=== PATIENT | male | born 1985 | race Caucasian/White ===

== ENCOUNTER → 2016-08-05 | Outpatient (CLI) | payer OTHER ==
--- NOTE | 2016-08-06 08:28 | RAD ---
Cervical spine, 3 views, 08/05/2016: History: Neck pain and right arm tingling No fracture or dislocation is identified. There are only minimal spurs in the mid cervical spine. The disc spaces are fairly well preserved. The prevertebral soft tissues are unremarkable. IMPRESSION: 1. Minimal marginal spurring. 2. No acute abnormality is detected. 3. MR scanning of the cervical spine may be useful for further evaluation, if clinically indicated. Right shoulder, 3 views, 08/05/2016: No fracture or dislocation is identified. The periarticular soft tissues are unremarkable. IMPRESSION: No significant right shoulder abnormality is detected. Right elbow, 3 views, 08/05/2016: The exam is suboptimal due to patient rotation. No fracture or dislocation is identified. No joint effusion is evident. IMPRESSION: No acute right elbow abnormality is detected.
== END | disposition home or self-care (01) ==
LOC: RAD 18:11
PROVIDERS: ATTEND Specialist
DX: M25.521 Pain in right elbow (principal); M25.511 Pain in right shoulder
CPT/HCPCS: 72040; 73030; 73080

== ENCOUNTER → 2019-08-06 | Outpatient (CLI) | payer OTHER ==
--- NOTE | 2019-08-06 14:12 | RAD ---
INDICATION: Knee pain COMPARISON: None. IMPRESSION: Right knee: 4 views obtained. No acute fracture or dislocation. There may be some very mild degenerative changes. Electronically signed by: Cash Wright MD (08/06/2019 2:09 PM) [id number]
== END | disposition home or self-care (01) ==
LOC: RAD 12:59
PROVIDERS: ATTEND Family Medicine
DX: M25.561 Pain in right knee (principal)
CPT/HCPCS: 73564

== ENCOUNTER 2020-06-24 02:02 | Emergency (ER) | payer OTHER ==
[~2020-06-24] VITALS: Ht 182.9 cm; Wt 88.6 kg
[2020-06-24 02:06] VITALS: BP 121/54
--- NOTE | 2020-06-24 03:04 | PHYS DOC ---
Past Medical History Past Medical History: No Pertinent History Past Surgical History: No Surgical History Smoking Status: Current Every Day Smoker Alcohol Use: Rarely General Adult EDM: Chief Complaint: FACE PAIN HPI: HPI: 35-year-old male past medical history of tobacco dependence, presents the ED with complaints of left sided upper jaw pain x 3 wks, no relief with Tylenol or ibuprofen. Patient states he has been seen at his dentist and had cleaning over his wisdom tooth that was extracted a year and half ago. Dentist did x-rays at the time and did not feel as if the tooth was infected or the cause of his pain. Patient seen in urgent care clinic 10 days ago and was given steroids and antibiotics, treated for sinus infection-no change with sxs. Patient denies any blunt injury. No associated fever, headache, neck stiffness or nuchal rigidity, nausea or vomiting, hearing loss, dizziness or blurred vision. Review of Systems: Review of Systems: Constitutional: Denies fever or chills. [] Eyes: Denies change in visual acuity or eye discharge or red eye HENT: Denies nasal congestion or sore throat or earache or ear drainage or hearing loss or tinnitus Respiratory: Denies cough or shortness of breath. [] Cardiovascular: Denies chest pain or edema. [] GI: Denies abdominal pain, nausea, vomiting, bloody stools or diarrhea. [] : Denies dysuria or hematuria Musculoskeletal: Denies back pain or joint pain. [] Integument: Denies rash. [] Neurologic: Denies headache, focal weakness or sensory changes. [] Endocrine: Denies polyuria or polydipsia. [] Lymphatic: Denies swollen glands. [] Psychiatric: Denies depression or anxiety. [] Heart Score: C/O Chest Pain: No Risk Factors: Risk Factors: DM, Current or recent (<one month) smoker, HTN, HLP, family history of CAD, obesity. Risk Scores: Score 0 - 3: 2.5% MACE over next 6 weeks - Discharge Home Score 4 - 6: 20.3% MACE over next 6 weeks - Admit for Clinical Observation Score 7 - 10: 72.7% MACE over next 6 weeks - Early Invasive Strategies Physical Exam: PE: Constitutional: Well developed, well nourished, no acute distress, non-toxic appearance. HENT: Normocephalic, atraumatic, normal tympanic membrane bilaterally, normal oropharynx with no exudates, oral cavity with pain more posteriorly through the left molar, no gingival swelling, pain is localized over patient's left TM joint, no clicking or popping Eyes: PERRLA, EOMI, conjunctiva normal, no discharge. Neck: Normal range of motion, supple, no nuchal rigidity Cardiovascular: S1/2 present, regular rhythm Lungs & Thorax: Speaking in full sentences, bilateral equal chest rise, no tachypnea or increased work of breathing Abdomen: soft, no tenderness, Skin: Warm, dry, no erythema, no rash. [] Extremities: No tenderness, no cyanosis, no lower extremity edema Neurologic: Alert and oriented X 3, normal motor function, normal sensory function, no focal deficits noted. [] Psychologic: Affect normal, judgement normal, mood normal. [] Current Patient Data: Vital Signs: Vital Signs Date Time Temp Pulse Resp B/P (MAP) Pulse Ox O2 Delivery O2 Flow Rate FiO2 06/24/20 02:06 98.2 67 20 121/54 (76) 99 Room Air 98.2 EKG: EKG: [] Radiology/Procedures: Radiology/Procedures: [] Course & Med Decision Making: Course & Med Decision Making Pertinent Labs and Imaging studies reviewed. (See chart for details) Left jaw pain suspect more likely related to TMJ >> infection or inner ear pathology. Patient [id number] prescribe muscle relaxers as needed for pain. Will discharge home with strict ED return precautions were given for fever, head or neck swelling, neck stiffness or severe headache. Encouraged urgent outpatient follow-up with PMD and ENT for definitive management. Life- threatening processes were considered but are low suspicion at this time, given history, physical exam and ED workup. Pt was educated on all prescription medications and adverse effects. All patient's questions were answered and pt was stable at time of discharge. Life/limb-threatening differential includes but is not limited to, Polo's angina, infection (periodontal or peritonsillar abscess, retropharyngeal abscess, Vincents angina, ANUG, pharyngeal/boy's adviser/buccal space infection), trauma or fracture, dental fracture/subluxation/avulsion, dental bleeding or hemorrhage/DIC, pulpitis, alveolar osteitis or neoplasm I spoken with the patient and her caregivers. I explained the patient's condition, diagnoses and treatment plan based on the information available to me at this time. I have answered the patient and her caregiver's questions and a ddressed any concerns. The patient and her caregivers have a good understanding of patient's diagnosis, condition and treatment plan as can be expected at this point. Vital signs have been stable. Patient's condition is stable and appropriate for discharge from the emergency department. Patient will pursue further outpatient evaluation with primary care physician or other designated or consulting physician as outlined in the discharge instructions. The patient and/or caregivers are agreeable to this plan of care and follow-up instructions have been explained in detail. The patient and/or caregivers have received these instructions in written form and have expressed an understanding of the discharge instructions. The patient and/or caregivers are aware that any significant change of condition or worsening of symptoms should prompt immediate return to this or the closest emergency department or call to 1. Elodia Disclaimer: Elodia Disclaimer: This electronic medical record was generated, in whole or in part, using a voice recognition dictation system. Departure Departure Impression: Primary Impression: TMJ (sprain of temporomandibular joint) Disposition: 01 DC HOME SELF CARE/HOMELESS Condition: STABLE Referrals: OJ YI MD (PCP) within 1 week Patient Instructions: Temporomandibular Joint Pain-Brief, Temporomandibular Problems Additional Instructions: FOLLOW UP WITH ENT: Otolaryngology Address: [address] [place] [address], [id number] [place] [address] [employer] [facility] Address: [address] [place] [id number] EMERGENCY DEPARTMENT GENERAL DISCHARGE INSTRUCTIONS Thank you for coming to [facility] Emergency Department (ED) today and trusting us with you care. We trust that you had a positive experience in our Emergency Department. If you wish to speak to the department management, you may call the Director at [phone]. YOUR FOLLOW UP INSTRUCTIONS ARE FOLLOWS: 1. Do you have a private Doctor? If you do not have a private doctor, please ask for a resource list of physicians or clinics that may be able to assist you with foll ow up care. 2. The Emergency Physicain has interpreted your x-rays. The X-Ray specialist will also review them. If there is a change in the findings, you will be notified in 48 hours when at all possible. 3. A lab test or culture has been done, your results will be reviewed and you will be notified if you need a change in treatment. ADDITIONAL INSTRUCTIONS AND INFORMATION: 1. Your care today has been supervised by a physician who is specially trained in emergency care. Many problems require more than one evaluation for a complete diagnosis and treatment. We recommend that you schedule your follow up appointment as re commended to ensure complete treatment of you illness or injury. If you are unable to obtain follow up care and continue to have a problem, or if your condition worsens, we recommend that you return to the ED. 2. We are not able to safely determine your condition over the phone nor are we able to give sound medical advice over the phone. For these safety reasons, if you call for medical advice we will ask you to come to the ED for further evaluation. 3. If you have any questions regarding these discharge instructions please call the ED at [phone]. SAFETY INFORMATION: In the interest of safety, wellness, and injury prevention; we encourage you to wear your sealbelt, if you smoke; quite smoking, and we encourage family to use a protective helmet for bicycling and other sporting events that present an increased risk for head injury. IF YOUR SYMPTOMS WORSEN OR NEW SYMPTOMS DEVELOP, OR YOU HAVE CONCERNS ABOUT YOUR CONDITION; OR IF YOUR CONDITION WORSENS WHILE YOU ARE WAITING FOR YOUR FOLLOW UP APPOINTMENT; EITHER CONTACT YOUR PRIMARY CARE DOCTOR, THE PHYSICIAN WHOSE NAME AND NUMBER YOU WERE GIVEN, OR RETURN TO THE ED IMMEDIATELY. Scripts Cyclobenzaprine Hcl (CYCLOBENZAPRINE HCL) 5 Mg Tablet 5 MG PO TID for 7 Days, #21 TAB Prov: DIANE DHALIWAL DO 06/24/20 DIANE DHALIWAL DO Jun 24, 2020 03:04
[2020-06-24] MEDS ORDERED: CYCL5TAB PO (03:18)
== END 2020-06-24 03:26 | disposition home or self-care (01) ==
LOC: ER 02:02
DX: S03.42XA Sprain of jaw, left side, initial encounter (principal); F17.200 Nicotine dependence, unspecified, uncomplicated; X58.XXXA Exposure to other specified factors, initial encounter; Y93.89 Activity, other specified; Y92.89 Other specified places as the place of occurrence of the external cause; Y99.8 Other external cause status
CPT/HCPCS: 99283